=== PATIENT | male | born 1970 | race African-American/Black ===

== ENCOUNTER 2020-05-11 13:43 | Emergency (ER) | payer MEDICAID, OTHER ==
[~2020-05-11] VITALS: Ht 170.2 cm; Wt 86.0 kg
[2020-05-11] MEDS ORDERED: SODIUM CHLORIDE 0.9% 1,000 ML IV ONE (14:39)
[2020-05-11 15:14] LABS: BASOPHILS % 0.5 % (0.0-2.0); EOSINOPHILS % 0.1 % (0.0-5.0); HEMATOCRIT. 48.5 % (42.0-52.0); HEMOGLOBIN. 16.1 g/dL (14.0-18.0); LYMPHOCYTES % 10.3 % (20.0-50.0); MEAN CORPUSCULAR HEMOGLOBIN 27.3 pg (28.0-32.0); MEAN CORPUSCULAR VOLUME 82.6 fL (80.0-94.0); MEAN PLATELET VOLUME 8.2 fl (7.4-10.4); MONOCYTES % 5.5 % (2.0-8.0); NEUTROPHILS % 83.6 % (40.0-76.0); PLATELET 272 x1000/uL (130-400); RED BLOOD CELL COUNT 5.87 mill/uL (4.7-6.1); RED CELL DISTRIBUTION WIDTH 13.7 % (11.6-14.6)
[2020-05-11 15:16] LABS: CHLORIDE 107 mEq/L (98-107)
[2020-05-11 15:39] LABS: HCG SCREEN NEGATIVE
[2020-05-11 16:27] LABS: CLARITY URINE CLEAR (CLEAR); COLOR URINE YELLOW (YELLOW); KETONES URINE NEGATIVE (NEGATIVE); LEUKOCYTE ESTERASE URINE NEGATIVE (NEGATIVE); NITRITE URINE NEGATIVE (NEGATIVE); OCCULT BLOOD URINE NEGATIVE (NEGATIVE); PH URINE 6.5 (4.5-8.0); PROTEIN URINE NEGATIVE (NEGATIVE); SPECIFIC GRAVITY URINE 1.029 (1.005-1.030); UROBILINOGEN URINE 0.2 E.U./dL (0.2-1.0)
[2020-05-11 16:58] VITALS: BP 130/93
== END 2020-05-11 17:09 | disposition home or self-care (01) ==
LOC: ER 13:43
DX: M62.81 Muscle weakness (generalized) (principal); R11.2 Nausea with vomiting, unspecified; F12.10 Cannabis abuse, uncomplicated; R00.0 Tachycardia, unspecified
CPT/HCPCS: 36415; 80053; 81003; 83605; 84484; 84703; 85025; 85610; 93005; 96360; 96361; 99284; J7030

== ENCOUNTER 2020-05-12 14:00 | Inpatient (IN) | payer MEDICAID ==
[~2020-05-12] VITALS: Ht 170.2 cm; Wt 86.2 kg
[2020-05-12] MEDS ORDERED: SODIUM CHLORIDE 0.9% 1,000 ML IV ONE ×3 (14:50→20:04)
[2020-05-12 16:22] LABS: BASOPHILS % 0.3 % (0.0-2.0); EOSINOPHILS % 0.7 % (0.0-5.0); HEMATOCRIT. 45.4 % (42.0-52.0); LYMPHOCYTES % 20.8 % (20.0-50.0); MEAN CORPUSCULAR HEMOGLOBIN 27.4 pg (28.0-32.0); MEAN CORPUSCULAR VOLUME 82.9 fL (80.0-94.0); MEAN PLATELET VOLUME 8.1 fl (7.4-10.4); MONOCYTES % 7.4 % (2.0-8.0); NEUTROPHILS % 70.8 % (40.0-76.0); PLATELET 229 x1000/uL (130-400); RED BLOOD CELL COUNT 5.48 mill/uL (4.7-6.1); RED CELL DISTRIBUTION WIDTH 13.6 % (11.6-14.6)
[2020-05-12 16:30] LABS: CHLORIDE 109 mEq/L (98-107)
[2020-05-12 16:50] LABS: CREATINE KINASE 2004 IU/L (39-308)
[2020-05-12 17:05] LABS: CLARITY URINE CLEAR (CLEAR); COLOR URINE YELLOW (YELLOW); KETONES URINE 1+ (NEGATIVE); LEUKOCYTE ESTERASE URINE NEGATIVE (NEGATIVE); NITRITE URINE NEGATIVE (NEGATIVE); OCCULT BLOOD URINE NEGATIVE (NEGATIVE); PH URINE 5.5 (4.5-8.0); PROTEIN URINE NEGATIVE (NEGATIVE); SPECIFIC GRAVITY URINE 1.026 (1.005-1.030); UROBILINOGEN URINE 0.2 E.U./dL (0.2-1.0)
[2020-05-12 19:51] LABS: CREATINE KINASE 2017 IU/L (39-308)
[2020-05-12] MEDS ORDERED: ONDANSETRON HCL 4MG/2ML INJ IV PRN (21:45)
[2020-05-12] MEDS ORDERED: DOCUSATE SODIUM 100MG CAPSULE PO PRN (21:45)
[2020-05-12] MEDS ORDERED: GUAIFENESIN 200MG/10ML SUGAR FREE UDC PO PRN (21:45)
[2020-05-12] MEDS ORDERED: MAGNESIUM/ALUMINUM HYDROXIDE/SIMETHICONE 30ML UDC PO PRN (21:45)
[2020-05-12] MEDS ORDERED: ACETAMINOPHEN 325MG TABLET PO PRN (21:45)
[2020-05-12] MEDS ORDERED: HYDROCODONE/ACETAMINOPHEN 5/325MG TABLET PO PRN (21:45)
[2020-05-12] MEDS ORDERED: CLONIDINE 0.1MG TABLET PO PRN (21:45)
[2020-05-12 22:30] VITALS: BP 139/95
[2020-05-12] MEDS: SODIUM CHLORIDE 0.9% 1,000 ML IV SCH (23:13)
[2020-05-13] VITALS: BP 139/95
[2020-05-13 00:23] LABS: CREATINE KINASE 1857 IU/L (39-308)
[2020-05-13 04:00] VITALS: BP 130/85
[2020-05-13 06:53] LABS: BASOPHILS % 0.5 % (0.0-2.0); EOSINOPHILS % 1.1 % (0.0-5.0); HEMATOCRIT. 44.4 % (42.0-52.0); HEMOGLOBIN. 14.4 g/dL (14.0-18.0); LYMPHOCYTES % 34.9 % (20.0-50.0); MEAN CORPUSCULAR VOLUME 83.4 fL (80.0-94.0); MEAN PLATELET VOLUME 8.3 fl (7.4-10.4); NEUTROPHILS % 55.5 % (40.0-76.0); PLATELET 227 x1000/uL (130-400); RED BLOOD CELL COUNT 5.32 mill/uL (4.7-6.1); RED CELL DISTRIBUTION WIDTH 13.8 % (11.6-14.6)
[2020-05-13 07:03] LABS: CHLORIDE 109 mEq/L (98-107)
[2020-05-13 07:09] LABS: HDL CHOLESTEROL 41 mg/dL (40-59)
[2020-05-13 07:17] LABS: LDL CHOLESTEROL 144 mg/dL (5-100)
[2020-05-13 07:25] LABS: CREATINE KINASE 1743 IU/L (39-308)
[2020-05-13 08:00] VITALS: BP 142/92
[2020-05-13] MEDS: SODIUM CHLORIDE 0.9% 1,000 ML IV SCH (08:14)
[2020-05-13] MEDS ORDERED: AMLODIPINE 5MG TABLET PO SCH (11:43)
[2020-05-13 12:00] VITALS: BP 146/97
[2020-05-13 16:00] VITALS: BP 151/89
[2020-05-13 16:30] VITALS: BP 151/89
== END 2020-05-13 17:27 | disposition home or self-care (01) | DRG 351 ==
LOC: ER 14:00 → 6EST 20:54 → EDBEDREQ 20:58 → ENRESERV 21:34
PROVIDERS: ADMIT Hospitalist; ATTEND Hospitalist
DX: M62.82 Rhabdomyolysis (principal); I10 Essential (primary) hypertension; E78.5 Hyperlipidemia, unspecified
CPT/HCPCS: 36415; 71045; 80053; 80061; 81003; 82550; 83605; 83880; 84484; 85025; 93005; 93970; 99285; J7030

== ENCOUNTER 2020-05-19 13:48 | Emergency (ER) | payer MEDICAID ==
[~2020-05-19] VITALS: Ht 170.2 cm; Wt 87.0 kg
[2020-05-19] MEDS ORDERED: SODIUM CHLORIDE 0.9% 1,000 ML IV ONE ×2 (14:08)
[2020-05-19 14:54] LABS: BASOPHILS % 0.3 % (0.0-2.0); EOSINOPHILS % 0.5 % (0.0-5.0); HEMOGLOBIN. 15.4 g/dL (14.0-18.0); LYMPHOCYTES % 24.7 % (20.0-50.0); MEAN CORPUSCULAR HEMOGLOBIN 27.6 pg (28.0-32.0); MEAN CORPUSCULAR VOLUME 82.7 fL (80.0-94.0); MEAN PLATELET VOLUME 8.2 fl (7.4-10.4); NEUTROPHILS % 66.5 % (40.0-76.0); PLATELET 287 x1000/uL (130-400); RED BLOOD CELL COUNT 5.57 mill/uL (4.7-6.1); RED CELL DISTRIBUTION WIDTH 13.5 % (11.6-14.6)
[2020-05-19 14:59] LABS: CHLORIDE 106 mEq/L (98-107)
[2020-05-19 15:12] LABS: CLARITY URINE CLEAR (CLEAR); COLOR URINE YELLOW (YELLOW); KETONES URINE TRACE (NEGATIVE); LEUKOCYTE ESTERASE URINE NEGATIVE (NEGATIVE); NITRITE URINE NEGATIVE (NEGATIVE); OCCULT BLOOD URINE NEGATIVE (NEGATIVE); PH URINE 7.5 (4.5-8.0); PROTEIN URINE NEGATIVE (NEGATIVE); SPECIFIC GRAVITY URINE 1.019 (1.005-1.030); UROBILINOGEN URINE 0.2 E.U./dL (0.2-1.0)
[2020-05-19 15:20] LABS: CREATINE KINASE 1513 IU/L (39-308)
[2020-05-19 18:00] VITALS: BP 147/90
== END 2020-05-19 18:53 | disposition home or self-care (01) ==
LOC: ER 13:48
DX: E86.0 Dehydration (principal); M62.82 Rhabdomyolysis; E87.5 Hyperkalemia; R00.0 Tachycardia, unspecified
CPT/HCPCS: 36415; 80053; 81003; 82550; 84484; 85025; 93005; 99284; J7030

== ENCOUNTER 2020-05-22 05:28 | Emergency (ER) | payer MEDICAID ==
[~2020-05-22] VITALS: Ht 170.2 cm; Wt 86.0 kg
[2020-05-22] MEDS ORDERED: SODIUM CHLORIDE 0.9% 1,000 ML IV ONE (07:15)
[2020-05-22 07:40] LABS: BASOPHILS % 0.6 % (0.0-2.0); EOSINOPHILS % 0.8 % (0.0-5.0); HEMATOCRIT. 49.2 % (42.0-52.0); HEMOGLOBIN. 16.3 g/dL (14.0-18.0); LYMPHOCYTES % 26.8 % (20.0-50.0); MEAN CORPUSCULAR HEMOGLOBIN 27.4 pg (28.0-32.0); MEAN CORPUSCULAR VOLUME 82.6 fL (80.0-94.0); MEAN PLATELET VOLUME 7.9 fl (7.4-10.4); MONOCYTES % 9.1 % (2.0-8.0); NEUTROPHILS % 62.7 % (40.0-76.0); PLATELET 286 x1000/uL (130-400); RED BLOOD CELL COUNT 5.96 mill/uL (4.7-6.1)
[2020-05-22 07:48] LABS: CHLORIDE 104 mEq/L (98-107)
[2020-05-22 08:08] LABS: CREATINE KINASE 1692 IU/L (39-308)
[2020-05-22] MEDS ORDERED: SODIUM BICARBONATE 150 MEQ in DEXTROSE 5% WATER 1,000 ML IV SCH (15:00)
[2020-05-22] MEDS ORDERED: SODIUM BICARBONATE 8.4% MEQ/ML 50ML VIAL IV ONE (15:21)
[2020-05-22 16:29] VITALS: BP 133/76
== END 2020-05-22 16:30 | disposition home or self-care (01) ==
LOC: ER 05:41
DX: M62.82 Rhabdomyolysis (principal); I10 Essential (primary) hypertension
CPT/HCPCS: 36415; 80053; 82550; 83605; 83615; 85025; 93005; 96360; 96361; 99285; J3490; J7030; J7070

== ENCOUNTER 2021-07-19 09:28 | Emergency (ER) | payer MEDICAID ==
[~2021-07-19] VITALS: Ht 170.2 cm; Wt 86.0 kg
[2021-07-19] MEDS ORDERED: ONDANSETRON 4MG ODT PO STA (10:58)
[2021-07-19] MEDS ORDERED: VISCOUS LIDOCAINE 2% 15 ML UDC PO STA (10:58)
[2021-07-19] MEDS ORDERED: MAGNESIUM/ALUMINUM HYDROXIDE/SIMETHICONE 30ML UDC PO STA (10:58)
[2021-07-19] MEDS ORDERED: FAMOTIDINE 20MG TABLET PO ONE (11:00)
[2021-07-19 11:45] LABS: HEMATOCRIT. 45.8 % (42.0-52.0); HEMOGLOBIN. 15.4 g/dL (14.0-18.0); MEAN CORPUSCULAR HEMOGLOBIN 27.3 pg (28.0-32.0); MEAN CORPUSCULAR VOLUME 81.1 fL (80.0-94.0); MEAN PLATELET VOLUME 7.2 fl (7.4-10.4); PLATELET 259 x1000/uL (130-400); RED BLOOD CELL COUNT 5.65 mill/uL (4.7-6.1); RED CELL DISTRIBUTION WIDTH 13.3 % (11.6-14.6)
[2021-07-19 11:52] LABS: CHLORIDE 104 mEq/L (98-107); PROTHROMBIN TIME 10.6 sec (9.6-11.0)
[2021-07-19 12:24] LABS: PLATELET ESTIMATE NORMAL
[2021-07-19] MEDS ORDERED: FAMO-135 MT (13:03)
[2021-07-19] MEDS ORDERED: MAG-55 MT (13:03)
[2021-07-19 14:51] VITALS: BP 171/100
== END 2021-07-19 14:51 | disposition home or self-care (01) ==
LOC: ER 09:28
DX: K52.9 Noninfective gastroenteritis and colitis, unspecified (principal); E78.00 Pure hypercholesterolemia, unspecified; I10 Essential (primary) hypertension
CPT/HCPCS: 36415; 80053; 83690; 85025; 85610; 93005; 99284; Q0162

== ENCOUNTER 2021-11-26 14:19 | Emergency (ER) | payer MEDICAID ==
[~2021-11-26] VITALS: Ht 167.6 cm; Wt 86.0 kg
[~2021-11-26 14:19] MED LIST: FAMO-135 MT; MAG-55 MT
[2021-11-26] MEDS ORDERED: IBUP-2029 MT (15:00)
[2021-11-26 16:21] VITALS: BP 127/86
== END 2021-11-26 16:22 | disposition home or self-care (01) ==
LOC: ER 14:27
DX: M25.511 Pain in right shoulder (principal); M79.601 Pain in right arm; I10 Essential (primary) hypertension; E78.00 Pure hypercholesterolemia, unspecified
CPT/HCPCS: 73030; 99283

== ENCOUNTER 2022-06-14 10:32 | Emergency (ER) | payer MEDICAID ==
[~2022-06-14] VITALS: Ht 170.2 cm; Wt 91.0 kg
[~2022-06-14 10:32] MED LIST changes: +IBUP-2029 MT
[2022-06-14 11:16] VITALS: BP 146/93
[2022-06-14] MEDS ORDERED: ONDANSETRON 4MG ODT PO STA (12:47)
[2022-06-14 14:37] LABS: CHLORIDE 108 mEq/L (98-107)
[2022-06-14 14:44] LABS: ETHANOL BLOOD < 10 mg/dL
[2022-06-14 16:03] LABS: CLARITY URINE CLEAR (CLEAR); COLOR URINE YELLOW (YELLOW); KETONES URINE TRACE (NEGATIVE); LEUKOCYTE ESTERASE URINE NEGATIVE (NEGATIVE); NITRITE URINE NEGATIVE (NEGATIVE); OCCULT BLOOD URINE NEGATIVE (NEGATIVE); PH URINE 5.5 (4.5-8.0); PROTEIN URINE NEGATIVE (NEGATIVE); UROBILINOGEN URINE 0.2 E.U./dL (0.2-1.0)
[2022-06-14 16:15] LABS: *AMPHETAMINES SCREEN URINE NEGATIVE (NEGATIVE); *BARBITURATES SCREEN URINE NEGATIVE (NEGATIVE); *BENZODIAZEPINES SCREEN URINE NEGATIVE (NEGATIVE); *COCAINE SCREEN URINE NEGATIVE (NEGATIVE); CANNABINOID URINE SCREEN PRESUMTIVE POSITIVE (NEGATIVE); METHADONE URINE SCREEN NEGATIVE (NEGATIVE); OPIATES URINE SCREEN NEGATIVE (NEGATIVE); PHENCYCLIDINE URINE SCREEN NEGATIVE (NEGATIVE)
[2022-06-14 16:37] LABS: BASOPHILS % 0.5 % (0.0-2.0); EOSINOPHILS % 3.2 % (0.0-5.0); HEMATOCRIT. 47.6 % (42.0-52.0); HEMOGLOBIN. 15.4 g/dL (14.0-18.0); LYMPHOCYTES % 45.4 % (20.0-50.0); MEAN CORPUSCULAR HEMOGLOBIN 26.8 pg (28.0-32.0); MEAN CORPUSCULAR VOLUME 82.9 fL (80.0-94.0); MEAN PLATELET VOLUME 7.3 fl (7.4-10.4); NEUTROPHILS % 40.9 % (40.0-76.0); PLATELET 288 x1000/uL (130-400); RED BLOOD CELL COUNT 5.74 mill/uL (4.7-6.1); RED CELL DISTRIBUTION WIDTH 13.6 % (11.6-14.6)
[2022-06-14] MEDS ORDERED: MECL-159 PO (17:04)
[2022-06-14] MEDS ORDERED: BISM-77 MT (17:04)
[2022-06-14] MEDS ORDERED: ACET-2708 PO (17:04)
== END 2022-06-14 17:28 | disposition home or self-care (01) ==
LOC: ER 10:32
DX: H81.10 Benign paroxysmal vertigo, unspecified ear (principal); K52.9 Noninfective gastroenteritis and colitis, unspecified; R53.83 Other fatigue; I10 Essential (primary) hypertension; R94.31 Abnormal electrocardiogram [ECG] [EKG]
CPT/HCPCS: 36415; 71045; 80053; 80305; 80320; 81003; 85025; 93005; 99285; Q0162; G0480

== ENCOUNTER 2025-05-18 19:05 | Emergency (ER) | payer MEDICAID ==
[~2025-05-18] VITALS: Ht 172.7 cm; Wt 80.0 kg
[~2025-05-18 19:05] MED LIST changes: +ACET-2708 PO; +BISM-77 MT; +MECL-299 PO
[2025-05-18 19:12] VITALS: O2SAT 99
[2025-05-18 19:14] VITALS: BP 140/88; PULSE 88; RESP 20; TEMP 36.6; O2SAT 96
== END 2025-05-19 00:10 | disposition left against medical advice (07) ==
LOC: ER 19:05
DX: M25.572 Pain in left ankle and joints of left foot (principal); Z53.21 Procedure and treatment not carried out due to patient leaving prior to being seen by health care provider